=== PATIENT | male | born 1980 | race Caucasian/White ===

== ENCOUNTER 2017-02-22 06:01 | Day surgery (SDC) | payer BC, OTHER ==
[~2017-02-22 06:01] MED LIST: Dextrose 5%-0.45% NaCl 1,000 ML IV SCH; Sodium Chloride 0.9% 10 ML Syringe FLUSH PRN
[2017-02-22] MEDS ORDERED: Midazolam 1 MG/ML 2 ML SDV IV ONE ×5 (06:02→07:49)
[2017-02-22] MEDS ORDERED: fentaNYL 100 MCG/2 ML SDV IV ONE ×3 (06:02→07:39)
[2017-02-22] MEDS ORDERED: fentaNYL 100 MCG/2 ML SDV ONE (06:18)
[2017-02-22] MEDS ORDERED: Midazolam 1 MG/ML 2 ML SDV ONE (06:18)
--- NOTE | 2017-02-22 09:02 | OR ---
DATE: 02/22/2017 PROCEDURES: Total colonoscopy, terminal ileoscopy, narrow-band imaging, cold snare polypectomy, and numerous pinch biopsies. INSTRUMENT USED: CF-H180 AL Olympus video colonoscope. PREMEDICATIONS: Fentanyl 100 mcg intravenous, Versed 4 mg intravenous. The procedure was done under pulse oximetry, BP recording, and panel monitor. INDICATION: The patient with longstanding Crohn colitis, on long-term anti-TNF therapy. Surveillance colonoscopic examination is done for detection of any polypoid lesions and removal. Biopsies to be obtained for any evidence of dysplasia, endoscopic hemostasis therapy if needed. DESCRIPTION OF PROCEDURE: Initial rectal exam was unremarkable. Rigid anoscopy was normal. The colonoscope was passed with ease. At around 10 cm proximal to the anal verge, less than 1-cm sized benign-appearing polypoid area was noted. NBI views were obtained. Photographs were taken. Cold snare polypectomy was done. The tissue was retrieved and sent for histopathology. Multiple pinch biopsies were taken from the area around polypectomy and sent for histopathology. Significant scar tissue was noted along with double-lumen in the descending colon area. Photographs were taken. The scope was passed with ease up to and beyond the ileocecal junction to visualize terminal ileum which had normal appearance. Photographs were taken. Multiple pinch biopsies were obtained. No stricture. No vascular ectasia. No large isolated ulcerations seen. Photographs were taken of the cecum. Four-quadrant biopsies were taken at 10 cm distance apart from the cecum to rectum. The tissues obtained were put in the bags: 1. Cecum and ascending colon. 2. Transverse colon. 3. Descending colon. 4. Rectosigmoid area. No bleeding was noted from any of the visualized areas at the completion of examination. IMPRESSION: Crohn disease. The patient tolerated the procedure well. [facility] /[id number]
[2017-02-22 13:03] VITALS: BP 120/76
== END 2017-02-22 10:16 | disposition home or self-care (01) ==
LOC: DL.ENDO 06:01
PROVIDERS: ATTEND Internal Medicine Gastroenterology
DX: K63.5 Polyp of colon (principal); K50.90 Crohn's disease, unspecified, without complications; E66.9 Obesity, unspecified; Z68.35 Body mass index [BMI] 35.0-35.9, adult
CPT/HCPCS: 45380; 45385; J2250; J3010; J7042

== ENCOUNTER 2019-12-02 06:14 | Day surgery (SDC) | payer BC ==
[2019-12-02] MEDS ORDERED: fentaNYL 100 MCG/2 ML SDV ONE (06:15)
[2019-12-02] MEDS ORDERED: Midazolam 1 MG/ML 2 ML SDV IV ONE ×6 (06:15→06:59)
[2019-12-02] MEDS ORDERED: fentaNYL 100 MCG/2 ML SDV IV ONE ×3 (06:15→06:48)
[2019-12-02] MEDS ORDERED: Midazolam 1 MG/ML 2 ML SDV ONE (06:15)
[2019-12-02 09:11] VITALS: BP 109/73; PULSE 73
--- NOTE | 2019-12-02 09:22 | OR ---
DATE: 12/02/2019 PROCEDURES: Total colonoscopy, terminal ileoscopy, narrow-band imaging, and multiple pinch biopsies. INSTRUMENT USED: PCF-H190DL Olympus video colonoscope. PREMEDICATIONS: Fentanyl 100 mcg intravenous, Versed 4 mg intravenous, nasal O2 cannula. The procedure was done under pulse oximetry, BP recording, and desk monitor. INDICATION: The patient with known Crohn's colitis, long-term and on therapy. Surveillance colonoscopic examination is done for detection of any polypoid lesions and removal, biopsies to be obtained for dysplasia and/or malignancy, endoscopic hemostasis therapy if needed. DESCRIPTION OF PROCEDURE: Initial rectal exam was unremarkable. Rigid anoscopy was normal. The colonoscope was passed with ease up to and beyond the ileocecal junction to visualize normal-appearing terminal ileum, photographs were taken of the rectum, cecum, and terminal ileum. Multiple pinch biopsies were taken from the terminal ileum and sent for histopathology. No bleeding was noted from any of the visualized areas at the commencement of the examination. Bowel preparation was found to be adequate, [place] scale 3 in all the regions, total number 9. No stricture. No vascular ectasia. No large isolated ulcerations seen. No evidence of diffuse inflammatory bowel disease in the form of friability, contact bleeding, or ulcerations. No polyp or tumor mass identified. 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 Probing the proximal sides of folds and flexures using adequate distention and clearing up the stool material, withdrawal of the scope was made. Four-quadrant biopsies were taken at 10 cm distance apart and the tissues were pooled into bags #1, cecum and ascending colon, #2 transverse colon, #3 descending colon, and #4 rectosigmoid area and sent for histopathology. No bleeding was noted from any of the visualized areas at the completion of examination. IMPRESSION: Crohn disease. The patient tolerated the procedure well. [facility] /[id number]
== END 2019-12-02 09:19 | disposition home or self-care (01) ==
LOC: DL.ENDO 06:14
PROVIDERS: ATTEND Internal Medicine Gastroenterology
DX: Z12.11 Encounter for screening for malignant neoplasm of colon (principal); K50.113 Crohn's disease of large intestine with fistula; K52.9 Noninfective gastroenteritis and colitis, unspecified; K62.89 Other specified diseases of anus and rectum; Z79.899 Other long term (current) drug therapy
CPT/HCPCS: J2250; J3010; J7042